=== PATIENT | male | born 1965 | race Caucasian/White ===

== ENCOUNTER → 2017-05-21 | Outpatient (CLI) | payer OTHER ==
[~2017-05-21] MED LIST: ALBUTEROL0.09 MG/A2 INH; DAYPRO600 M1 PO; DOXYCYCLINE HY100 M5 PO; LEVAQUIN LEVA-750 MG PO; MEDROL DOSEPAK4 MG PO; ROBAXIN750 MG PO; SPIRIVA18 MCG PO; VENTOLIN H0.09 MG/AC INH; VICODIN 500 MG-1 TAB PO
[2017-05-21 15:48] LABS: BASO # 0.1 10*3/uL (0.0-0.1); BASO % 0.6 % (0.0-1.0); EOS # 0.5 10*3/uL (0.0-0.4); EOS % 3.5 % (1.0-4.0); HEMATOCRIT 48.8 % (42.0-52.0); HEMOGLOBIN 16.6 g/dl (14.0-18.0); LYMPH # 2.2 10*3/uL (1.3-4.4); LYMPH % 16.9 % (27.0-41.0); MEAN CELL VOLUME 99.4 fl (80.0-94.0); MEAN CORPUSCULAR HGB 33.8 pg (27.0-31.0); MEAN PLATELET VOLUME 10.6 fl (9.6-12.3); MONO # 0.9 10*3/uL (0.1-1.0); MONO % 7.1 % (3.0-9.0); NEUT # 9.2 10*3/uL (2.3-7.9); NEUT % 71.4 % (47.0-73.0); PLATELET COUNT AUTOMATED 288 10*3/uL (130-400); RED BLOOD COUNT 4.91 10*6/uL (4.50-5.90); RED CELL DISTRI WIDTH 12.1 % (0-14.5); WHITE BLOOD COUNT 12.9 10*3/uL (4.8-10.8)
[2017-05-21 16:01] LABS: ALBUMIN 3.8 gm/dl (3.1-4.5); ALKALINE PHOSPHATASE 107 U/L (45-117); BUN 22 mg/dl (7-24); CHLORIDE 107 mmol/L (98-107); POTASSIUM 4.1 mmol/L (3.5-5.1); SGOT/AST 24 IU/L (3-35); SGPT/ALT 27 U/L (12-78); SODIUM 140 mmol/L (136-145); TOTAL PROTEIN 7.2 gm/dL (6.4-8.2)
== END | disposition home or self-care (01) ==
LOC: LAB 14:33
PROVIDERS: Family Medicine
DX: J20.9 Acute bronchitis, unspecified (principal); R10.11 Right upper quadrant pain

== ENCOUNTER 2018-06-02 00:46 | Emergency (ER) | payer OTHER ==
[~2018-06-02] VITALS: Ht 180.3 cm; Wt 81.6 kg
[2018-06-02] MEDS ORDERED: PROAIR HFA8.5 GM INH (01:52)
[2018-06-02] MEDS ORDERED: AUGMENTIN 875875 MG PO (01:52)
== END 2018-06-02 02:10 | disposition home or self-care (01) ==
LOC: ED 00:46
DX: J32.9 Chronic sinusitis, unspecified (principal); J44.9 Chronic obstructive pulmonary disease, unspecified

== ENCOUNTER 2018-06-05 02:16 | Inpatient (IN) | payer OTHER ==
[~2018-06-05] VITALS: Ht 172.7 cm; Wt 81.8 kg
--- NOTE | ~2018-06-05 | EKG ---
[place], [place] ELECTROCARDIOGRAM REPORT NAME: TARUN LINO UNIT #: [id number] ROOM: 402 DOCTOR: ROBERT DRAFT REPORT BIRTHDATE: [birth year] [facility] Test Date: 2018-06-05 Test Time: 02:24:52 Pat Name: TARUN LINO Department: Room: 402 Gender: [employer]: Randi Dueñas : 1965 Requested By: DELTA SEBASTIAN Order Number: [id number] Reading MD: Aelx Rose MD Measurements Intervals [place] Rate: 111 P: 81 ND: 171 QRS: 80 QRSD: 75 T: 63 QT: 294 QTc: 400 Interpretive Statements Sinus tachycardia Probable left atrial enlargement RSR' in V1 or V2, right VCD or RVH Borderline ST elevation, anterolateral leads Electronically Signed On 06-05-2018 16:01:09 PST by Alex Rose MD CM:EKGRPT:ELECTROCARDIOGRAM REPORT [id number] DELTA LEMUS DRAFT REPORT DELTA SEBASTIAN DO
--- NOTE | ~2018-06-05 | PR ---
[place], [place] PROGRESS NOTE NAME: TARUN LINO UNIT #: [id number] ROOM: 402 DOCTOR: ELIZABETH CHISHOLM MD BIRTHDATE: [birth year] DOS: 06/06/2018 SUBJECTIVE: The patient has been admitted to hospital with acute exacerbation of COPD with emphysema with acute tracheobronchitis, having difficulty in breathing and cough, having some chest pain also. He says he is somewhat better than before, but he is still having a lot of wheezing. He has history of chronic obstructive pulmonary disease with emphysema before and also has history of tobacco abuse though he has been advised many times to stop smoking, but he has not done so far and I counseled him again today in detail, please do not smoke and he has promised that he will not smoke anymore. His chest x-ray does not show any evidence of acute pneumonia. Hemoglobin A1c 6, vitamin B12 and folic acid are normal. Vitamin D level is low. Electrocardiogram shows left atrial enlargement, borderline ST elevation. His CBC today showed white count 19.8, hemoglobin 14.7, hematocrit 42.7. Basic metabolic profile showed glucose 131, chloride 109, calcium 8.4. Other values are normal. OBJECTIVE: VITAL SIGNS: Blood pressure 133/83, pulse 84, respirations 20, temperature 97.8. CHEST: Having bilateral wheezing with some crepitation. HEART: Regular. ABDOMEN: Soft. The patient is showing slow improvement and I counseled him again not to smoke. ELIZABETH CHISHOLM MD CM:PNKELLEN [id number] ELIZABETH CHISHOLM MD 06/29/18 [id number] interface
--- NOTE | ~2018-06-05 | PR ---
[place], [place] PROGRESS NOTE NAME: TARUN LINO UNIT #: [id number] ROOM: 402 DOCTOR: ELIZABETH CHISHOLM MD BIRTHDATE: [birth year] DOS: 06/07/2018 SUBJECTIVE: The patient has been admitted to hospital with acute exacerbation of COPD with emphysema, acute tracheobronchitis, and difficulty in breathing gradually improving. He is still having some difficulty in breathing, was feeling much better. His cough is improving and his heart is regular. Chest is having occasional wheezes with increased expiration. Blood culture and sensitivity did not grow any bacteria on 2 different occasions, and his basic metabolic profile shows glucose 131, chloride 109, and calcium 8.4. Other values are normal. CBC high 19,800, hemoglobin 14.2, hematocrit 42.7. OBJECTIVE: VITAL SIGNS: His blood pressure is 146/81, pulse is 80, respirations 18, temperature 97.9, and he is gradually improving. I counseled him again not to smoke at all. ELIZABETH CHISHOLM MD CM:PNTRANS [id number] ELIZABETH CHISHOLM MD 06/29/18 0950 interface
[~2018-06-05 02:16] MED LIST changes: +AUGMENTIN 875875 MG PO; +PROAIR HFA8.5 GM INH
[2018-06-05 02:22] VITALS: BP 134/80
[2018-06-05 02:38] LABS: BASO # 0.1 10*3/uL (0.0-0.1); BASO % 0.3 % (0.0-1.0); EOS # 0.2 10*3/uL (0.0-0.4); EOS % 0.7 % (1.0-4.0); HEMATOCRIT 48.1 % (42.0-52.0); HEMOGLOBIN 16.7 g/dl (14.0-18.0); LYMPH # 1.8 10*3/uL (1.3-4.4); LYMPH % 8.2 % (27.0-41.0); MEAN CELL VOLUME 100.4 fl (80.0-94.0); MEAN CORPUSCULAR HGB 34.9 pg (27.0-31.0); MEAN CORPUSCULAR HGB CONC 34.7 g/dl (33.0-37.0); MEAN PLATELET VOLUME 10.1 fl (9.6-12.3); MONO # 1.2 10*3/uL (0.1-1.0); MONO % 5.3 % (3.0-9.0); NEUT # 18.4 10*3/uL (2.3-7.9); NEUT % 84.9 % (47.0-73.0); PLATELET COUNT AUTOMATED 256 10*3/uL (130-400); RED BLOOD COUNT 4.79 10*6/uL (4.50-5.90); RED CELL DISTRI WIDTH 11.9 % (0-14.5); WHITE BLOOD COUNT 21.7 10*3/uL (4.8-10.8)
[2018-06-05 02:55] LABS: ALBUMIN 3.6 gm/dl (3.1-4.5); ALKALINE PHOSPHATASE 86 U/L (45-117); BUN 14 mg/dl (7-24); CHLORIDE 106 mmol/L (98-107); CREATININE 0.89 mg/dL (0.70-1.30); POTASSIUM 4.3 mmol/L (3.5-5.1); SGOT/AST 29 IU/L (3-35); SGPT/ALT 31 U/L (12-78); SODIUM 140 mmol/L (136-145); TOTAL PROTEIN 7.5 gm/dL (6.4-8.2)
[2018-06-05 02:56] LABS: TROPONIN I < 0.015 ng/ml (<0.045)
[2018-06-05 03:43] VITALS: BP 132/74
[2018-06-05 04:00] VITALS: BP 130/71
[2018-06-05 05:45] LABS: FREE T4 0.73 ng/dl (0.76-1.46); PHOSPHOROUS 1.2 mg/dL (2.5-4.9)
[2018-06-05 05:51] LABS: THYROID STIM HORMONE (HS) 1.21 uIU/ml (0.358-4.75)
[2018-06-05 06:18] LABS: ACT PARTIAL THROMBO TIME 22.5 SECONDS (20.8-31.5); INTERNATIONAL NORM RATIO 0.9 (2.0-3.5)
[2018-06-05 07:17] LABS: VITAMIN D, 25-HYDROXY 22.8 ng/mL (30-100)
[2018-06-05 12:00] VITALS: BP 135/75
[2018-06-05 16:00] VITALS: BP 120/77
[2018-06-05 20:00] VITALS: BP 128/72
[2018-06-06] VITALS: BP 123/64
[2018-06-06 06:11] LABS: BASO % 0.1 % (0.0-1.0); HEMATOCRIT 42.7 % (42.0-52.0); LYMPH # 1.5 10*3/uL (1.3-4.4); LYMPH % 7.7 % (27.0-41.0); MEAN CELL VOLUME 101.7 fl (80.0-94.0); MEAN CORPUSCULAR HGB 34.3 pg (27.0-31.0); MEAN CORPUSCULAR HGB CONC 33.7 g/dl (33.0-37.0); MEAN PLATELET VOLUME 10.5 fl (9.6-12.3); MONO # 0.8 10*3/uL (0.1-1.0); NEUT # 17.3 10*3/uL (2.3-7.9); NEUT % 87.4 % (47.0-73.0); PLATELET COUNT AUTOMATED 231 10*3/uL (130-400); RED CELL DISTRI WIDTH 11.9 % (0-14.5); WHITE BLOOD COUNT 19.8 10*3/uL (4.8-10.8)
[2018-06-06 06:22] LABS: HEMOGLOBIN 14.4 g/dl (14.0-18.0)
[2018-06-06 06:44] LABS: BUN 15 mg/dl (7-24); CHLORIDE 109 mmol/L (98-107); POTASSIUM 3.9 mmol/L (3.5-5.1); SODIUM 139 mmol/L (136-145)
[2018-06-06 08:00] VITALS: BP 133/83
[2018-06-06 12:00] VITALS: BP 142/85
[2018-06-06 16:00] VITALS: BP 138/84
[2018-06-06 20:00] VITALS: BP 138/85
[2018-06-07] VITALS: BP 138/80
[2018-06-07 08:00] VITALS: BP 146/81
[2018-06-07 12:00] VITALS: BP 139/77
[2018-06-07 16:00] VITALS: BP 138/84
[2018-06-07 20:00] VITALS: BP 140/80
[2018-06-08] VITALS: BP 154/83
[2018-06-08 08:00] VITALS: BP 137/78
[2018-06-08 12:00] VITALS: BP 139/86
[2018-06-08] MEDS ORDERED: SYMB160 INH (12:51)
[2018-06-08] MEDS ORDERED: PREDNISONE10 MG PO (12:51)
[2018-06-08] MEDS ORDERED: AVPAK AZITHROM250 M1 PO (12:51)
== END 2018-06-08 14:21 | disposition home or self-care (01) | DRG 871 ==
LOC: ED 02:16 → EDHOLD 03:02 → 4E 03:02
PROVIDERS: Family Medicine; Student in an Organized Health Care Education/Training Program; ADMIT Internal Medicine
DX: A41.9 Sepsis, unspecified organism (principal); R65.20 Severe sepsis without septic shock; J18.9 Pneumonia, unspecified organism; J44.1 Chronic obstructive pulmonary disease with (acute) exacerbation; J44.0 Chronic obstructive pulmonary disease with (acute) lower respiratory infection; J20.9 Acute bronchitis, unspecified; R73.9 Hyperglycemia, unspecified; E66.3 Overweight; F17.200 Nicotine dependence, unspecified, uncomplicated; Z79.899 Other long term (current) drug therapy; Z71.6 Tobacco abuse counseling; Z68.27 Body mass index [BMI] 27.0-27.9, adult

== ENCOUNTER → 2018-06-09 | Outpatient (CLI) | payer OTHER ==
[~2018-06-09] MED LIST changes: +AVPAK AZITHROM250 M1 PO; +PREDNISONE10 MG PO; +SYMB160 INH
== END | disposition home or self-care (01) ==
LOC: LAB 16:21
DX: J44.9 Chronic obstructive pulmonary disease, unspecified (principal)

== ENCOUNTER 2020-03-31 03:58 | Emergency (ER) | payer OTHER ==
[~2020-03-31] VITALS: Ht 180.3 cm; Wt 83.9 kg
[2020-03-31 04:21] LABS: BASO # 0.1 10*3/uL (0.0-0.1); BASO % 0.9 % (0.0-1.0); EOS # 0.5 10*3/uL (0.0-0.4); EOS % 4.7 % (1.0-4.0); HEMATOCRIT 41.3 % (42.0-52.0); LYMPH # 1.6 10*3/uL (1.3-4.4); LYMPH % 15.4 % (27.0-41.0); MEAN CELL VOLUME 100.7 fl (80.0-94.0); MEAN CORPUSCULAR HGB 33.2 pg (27.0-31.0); MEAN CORPUSCULAR HGB CONC 32.9 g/dl (33.0-37.0); MEAN PLATELET VOLUME 10.5 fl (9.6-12.3); MONO # 0.9 10*3/uL (0.1-1.0); MONO % 9.1 % (3.0-9.0); NEUT # 7.1 10*3/uL (2.3-7.9); NEUT % 69.5 % (47.0-73.0); PLATELET COUNT AUTOMATED 258 10*3/uL (130-400); RED CELL DISTRI WIDTH 11.8 % (0-14.5); WHITE BLOOD COUNT 10.2 10*3/uL (4.8-10.8)
[2020-03-31 04:42] LABS: ALBUMIN 3.3 gm/dl (3.1-4.5); ALKALINE PHOSPHATASE 93 U/L (45-117); BUN 17 mg/dl (7-24); CHLORIDE 108 mmol/L (98-107); CREATININE 1.03 mg/dL (0.70-1.30); LIPASE 281 U/L (73-393); POTASSIUM 4.2 mmol/L (3.5-5.1); SGOT/AST 17 IU/L (3-35); SGPT/ALT 21 U/L (12-78); SODIUM 141 mmol/L (136-145); TOTAL PROTEIN 6.6 gm/dL (6.4-8.2)
[2020-03-31] MEDS ORDERED: OMEPRAZOLE40 MG PO (05:33)
== END 2020-03-31 05:51 | disposition home or self-care (01) ==
LOC: ED 03:58
PROVIDERS: Internal Medicine
DX: K21.9 Gastro-esophageal reflux disease without esophagitis (principal); Z79.899 Other long term (current) drug therapy

== ENCOUNTER → 2020-06-09 | Outpatient (CLI) | payer OTHER ==
[~2020-06-09] MED LIST changes: +OMEPRAZOLE40 MG PO
== END | disposition home or self-care (01) ==
LOC: COVID19 15:52
PROVIDERS: ATTEND Family Medicine
DX: Z20.822 Contact with and (suspected) exposure to COVID-19 (principal); J44.1 Chronic obstructive pulmonary disease with (acute) exacerbation

== ENCOUNTER → 2020-07-12 | Outpatient (CLI) | payer OTHER | END | disposition home or self-care (01) | LOC: COVID19 12:29 | PROVIDERS: ATTEND Family Medicine | DX: Z20.822 Contact with and (suspected) exposure to COVID-19 (principal) ==

== ENCOUNTER → 2020-07-14 | Outpatient (CLI) | payer OTHER ==
[2020-07-14 14:28] LABS: BASO # 0.1 10*3/uL (0.0-0.1); BASO % 1.2 % (0.0-1.0); EOS # 0.7 10*3/uL (0.0-0.4); EOS % 7.8 % (1.0-4.0); HEMATOCRIT 44.2 % (42.0-52.0); LYMPH # 2.6 10*3/uL (1.3-4.4); LYMPH % 29.5 % (27.0-41.0); MEAN CELL VOLUME 97.6 fl (80.0-94.0); MEAN CORPUSCULAR HGB 33.1 pg (27.0-31.0); MEAN CORPUSCULAR HGB CONC 33.9 g/dl (33.0-37.0); MEAN PLATELET VOLUME 10.9 fl (9.6-12.3); MONO # 0.7 10*3/uL (0.1-1.0); MONO % 7.7 % (3.0-9.0); NEUT # 4.7 10*3/uL (2.3-7.9); NEUT % 53.2 % (47.0-73.0); PLATELET COUNT AUTOMATED 321 10*3/uL (130-400); RED BLOOD COUNT 4.53 10*6/uL (4.50-5.90); RED CELL DISTRI WIDTH 12.1 % (0-14.5); WHITE BLOOD COUNT 8.9 10*3/uL (4.8-10.8)
[2020-07-14 14:51] LABS: ALBUMIN 3.6 gm/dl (3.1-4.5); ALKALINE PHOSPHATASE 83 U/L (45-117); BUN 21 mg/dl (7-24); CHLORIDE 107 mmol/L (98-107); CREATININE 1.11 mg/dL (0.70-1.30); POTASSIUM 4.3 mmol/L (3.5-5.1); SGOT/AST 20 IU/L (3-35); SGPT/ALT 32 U/L (12-78); SODIUM 139 mmol/L (136-145); TOTAL PROTEIN 7.3 gm/dL (6.4-8.2)
== END | disposition home or self-care (01) ==
LOC: LAB 13:53
PROVIDERS: ATTEND Family Medicine
DX: R06.02 Shortness of breath (principal)

== ENCOUNTER → 2021-05-21 | Outpatient (CLI) | payer OTHER | END | disposition home or self-care (01) | LOC: COVID19 16:19 | PROVIDERS: ATTEND Internal Medicine | DX: Z11.52 Encounter for screening for COVID-19 (principal); Z20.822 Contact with and (suspected) exposure to COVID-19 ==

== ENCOUNTER 2022-06-07 16:22 | Inpatient (IN) | payer OTHER ==
[~2022-06-07] VITALS: Ht 180.3 cm; Wt 85.3 kg
[2022-06-07 16:30] VITALS: BP 173/86
[2022-06-07 17:17] LABS: BASO # 0.1 10*3/uL (0.0-0.1); BASO % 1.1 % (0.0-1.0); EOS # 0.8 10*3/uL (0.0-0.4); EOS % 7.6 % (1.0-4.0); HEMATOCRIT 41.8 % (42.0-52.0); LYMPH # 2.9 10*3/uL (1.3-4.4); LYMPH % 26.8 % (27.0-41.0); MEAN CORPUSCULAR HGB 32.5 pg (27.0-31.0); MEAN CORPUSCULAR HGB CONC 33.5 g/dl (33.0-37.0); MEAN PLATELET VOLUME 10.6 fl (9.6-12.3); MONO # 1.1 10*3/uL (0.1-1.0); MONO % 9.9 % (3.0-9.0); NEUT # 5.8 10*3/uL (2.3-7.9); PLATELET COUNT AUTOMATED 307 10*3/uL (130-400); RED BLOOD COUNT 4.31 10*6/uL (4.50-5.90); RED CELL DISTRI WIDTH 12.8 % (0-14.5); WHITE BLOOD COUNT 10.7 10*3/uL (4.8-10.8)
[2022-06-07 17:34] LABS: ALKALINE PHOSPHATASE 73 U/L (46-116); BUN 16 mg/dl (9-23); CHLORIDE 102 mmol/L (98-107); LIPASE 46 U/L (12-53); POTASSIUM 3.6 mmol/L (3.4-5.1); SGPT/ALT 21 U/L (10-49); TOTAL PROTEIN 6.9 gm/dL (6.0-8.0)
[2022-06-07 17:51] LABS: ACT PARTIAL THROMBO TIME 24.7 SECONDS (20.0-32.1); INTERNATIONAL NORM RATIO 0.9 (2.0-3.5)
[2022-06-07 19:37] VITALS: BP 141/54
[2022-06-07 21:45] VITALS: BP 136/94
[2022-06-08] VITALS: BP 123/67
[2022-06-08 06:52] LABS: BASO % 0.2 % (0.0-1.0); HEMATOCRIT 42.3 % (42.0-52.0); LYMPH # 0.7 10*3/uL (1.3-4.4); LYMPH % 9.9 % (27.0-41.0); MEAN CELL VOLUME 96.1 fl (80.0-94.0); MEAN CORPUSCULAR HGB 32.5 pg (27.0-31.0); MEAN CORPUSCULAR HGB CONC 33.8 g/dl (33.0-37.0); MONO % 0.6 % (3.0-9.0); NEUT # 5.9 10*3/uL (2.3-7.9); PLATELET COUNT AUTOMATED 297 10*3/uL (130-400); RED CELL DISTRI WIDTH 12.5 % (0-14.5); WHITE BLOOD COUNT 6.7 10*3/uL (4.8-10.8)
[2022-06-08 08:00] VITALS: BP 148/70
[2022-06-08 09:56] LABS: ALKALINE PHOSPHATASE 69 U/L (46-116); BUN 13 mg/dl (9-23); CHLORIDE 103 mmol/L (98-107); POTASSIUM 3.8 mmol/L (3.4-5.1); SGPT/ALT 20 U/L (10-49); TOTAL PROTEIN 6.9 gm/dL (6.0-8.0)
[2022-06-08 12:00] VITALS: BP 136/78
[2022-06-08 16:00] VITALS: BP 124/64
[2022-06-08 20:00] VITALS: BP 119/68
[2022-06-09] VITALS: BP 135/66
[2022-06-09 06:13] LABS: HEMATOCRIT 41.6 % (42.0-52.0); MEAN CELL VOLUME 97.7 fl (80.0-94.0); MEAN CORPUSCULAR HGB 32.4 pg (27.0-31.0); MEAN CORPUSCULAR HGB CONC 33.2 g/dl (33.0-37.0); MEAN PLATELET VOLUME 10.8 fl (9.6-12.3); PLATELET COUNT AUTOMATED 287 10*3/uL (130-400); RED BLOOD COUNT 4.26 10*6/uL (4.50-5.90); RED CELL DISTRI WIDTH 13.1 % (0-14.5); WHITE BLOOD COUNT 17.1 10*3/uL (4.8-10.8)
[2022-06-09 06:20] LABS: MANUAL DIFF REFLEX YES
[2022-06-09 06:40] LABS: ATYPICAL LYMPHS 1 % (0-0); PLATELET SUFFICIENCY NORMAL (NORMAL); TOTAL CELLS COUNTED 100 #CELLS
[2022-06-09 08:00] VITALS: BP 152/75
[2022-06-09 09:25] LABS: BUN 18 mg/dl (9-23); CHLORIDE 103 mmol/L (98-107); POTASSIUM 4.3 mmol/L (3.4-5.1)
[2022-06-09 12:00] VITALS: BP 124/70
[2022-06-09 16:00] VITALS: BP 137/82
[2022-06-09 20:00] VITALS: BP 128/81
[2022-06-10] VITALS: BP 135/80
[2022-06-10 06:24] LABS: CHOLESTEROL 209 mg/dL (<200); LDL CHOLESTEROL 121 mg/dL (9-159); TRIGLYCERIDES 81 mg/dl (<150)
[2022-06-10 08:00] VITALS: BP 134/78
[2022-06-10 12:00] VITALS: BP 113/72
[2022-06-10] MEDS ORDERED: CEFUROXIME AXE500 MG PO (14:53)
[2022-06-10] MEDS ORDERED: ZITHROMAX250 MG PO (14:53)
[2022-06-10] MEDS ORDERED: PREDNISONE10 MG PO (14:53)
[2022-06-10] MEDS ORDERED: LASIX20 MG PO (14:55)
[2022-06-10 16:00] VITALS: BP 140/81
== END 2022-06-10 17:20 | disposition home or self-care (01) | DRG 194 ==
LOC: ED 16:22 → EDHOLD 19:49 → 4E 19:49
PROVIDERS: Physician Assistant; ADMIT Internal Medicine; ATTEND Internal Medicine
DX: J18.9 Pneumonia, unspecified organism (principal); I50.30 Unspecified diastolic (congestive) heart failure; J44.1 Chronic obstructive pulmonary disease with (acute) exacerbation; J44.0 Chronic obstructive pulmonary disease with (acute) lower respiratory infection; J45.901 Unspecified asthma with (acute) exacerbation; R73.9 Hyperglycemia, unspecified; K21.9 Gastro-esophageal reflux disease without esophagitis; E66.3 Overweight; E66.9 Obesity, unspecified; Z83.6 Family history of other diseases of the respiratory system; Z87.891 Personal history of nicotine dependence; Z68.26 Body mass index [BMI] 26.0-26.9, adult

== ENCOUNTER 2023-08-18 17:21 | Emergency (ER) | payer OTHER ==
[~2023-08-18] VITALS: Ht 180.3 cm; Wt 88.5 kg
[~2023-08-18 17:21] MED LIST changes: +CEFUROXIME AXE500 MG PO; +LASIX20 MG PO; +ZITHROMAX250 MG PO
[2023-08-18 17:59] LABS: BASO # 0.1 10*3/uL (0.0-0.1); EOS # 0.4 10*3/uL (0.0-0.4); EOS % 3.8 % (1.0-4.0); HEMATOCRIT 45.4 % (42.0-52.0); LYMPH # 1.8 10*3/uL (1.3-4.4); LYMPH % 17.2 % (27.0-41.0); MEAN CELL VOLUME 96.8 fl (80.0-94.0); MEAN CORPUSCULAR HGB 31.8 pg (27.0-31.0); MEAN CORPUSCULAR HGB CONC 32.8 g/dl (33.0-37.0); MEAN PLATELET VOLUME 10.2 fl (9.6-12.3); MONO # 0.8 10*3/uL (0.1-1.0); MONO % 8.2 % (3.0-9.0); NEUT # 7.2 10*3/uL (2.3-7.9); NEUT % 69.4 % (47.0-73.0); PLATELET COUNT AUTOMATED 323 10*3/uL (130-400); RED BLOOD COUNT 4.69 10*6/uL (4.50-5.90); RED CELL DISTRI WIDTH 12.2 % (0-14.5); WHITE BLOOD COUNT 10.3 10*3/uL (4.8-10.8)
[2023-08-18 18:23] LABS: ALKALINE PHOSPHATASE 78 U/L (46-116); BUN 14 mg/dl (9-23); CHLORIDE 106 mmol/L (98-107); LIPASE 42 U/L (12-53); POTASSIUM 3.9 mmol/L (3.4-5.1); SGPT/ALT 17 U/L (5-49); TOTAL PROTEIN 6.9 gm/dL (6.0-8.0)
[2023-08-18] MEDS ORDERED: PREDNISONE20 M1 PO (18:49)
[2023-08-18] MEDS ORDERED: Albuterol Sulf/Ipratropium 3 ML VIAL NEB ONE (18:50)
[2023-08-18] MEDS ORDERED: methylPREDNISolone sod succ 125 MG VIAL IM ONE (18:50)
== END 2023-08-18 18:53 | disposition home or self-care (01) ==
LOC: ED 17:21
PROVIDERS: Internal Medicine
DX: J44.1 Chronic obstructive pulmonary disease with (acute) exacerbation (principal); Z20.822 Contact with and (suspected) exposure to COVID-19; Z95.5 Presence of coronary angioplasty implant and graft; F17.200 Nicotine dependence, unspecified, uncomplicated

== ENCOUNTER → 2024-03-26 | Outpatient (CLI) | payer OTHER ==
[~2024-03-26] MED LIST changes: +PREDNISONE20 M1 PO
[2024-03-26 08:03] LABS: BASO # 0.1 10*3/uL (0.0-0.1); BASO % 0.8 % (0.0-1.0); EOS # 0.3 10*3/uL (0.0-0.4); EOS % 2.2 % (1.0-4.0); HEMATOCRIT 44.3 % (42.0-52.0); MEAN CELL VOLUME 95.1 fl (80.0-94.0); MEAN CORPUSCULAR HGB 32.6 pg (27.0-31.0); MEAN CORPUSCULAR HGB CONC 34.3 g/dl (33.0-37.0); MEAN PLATELET VOLUME 9.9 fl (9.6-12.3); MONO # 1.1 10*3/uL (0.1-1.0); MONO % 7.6 % (3.0-9.0); NEUT % 63.6 % (47.0-73.0); PLATELET COUNT AUTOMATED 289 10*3/uL (130-400); RED BLOOD COUNT 4.66 10*6/uL (4.50-5.90); RED CELL DISTRI WIDTH 13.3 % (0-14.5); WHITE BLOOD COUNT 14.2 10*3/uL (4.8-10.8)
[2024-03-26 08:41] LABS: ALKALINE PHOSPHATASE 72 U/L (46-116); BUN 11 mg/dl (9-23); CHLORIDE 101 mmol/L (98-107); POTASSIUM 3.5 mmol/L (3.4-5.1); SGPT/ALT 23 U/L (5-49)
== END | disposition home or self-care (01) ==
LOC: LAB 07:28
PROVIDERS: ATTEND Nurse Practitioner Family
DX: L20.89 Other atopic dermatitis (principal)